=== PATIENT | female | born 1970 | race Caucasian/White ===

== ENCOUNTER 2022-11-20 15:51 | Emergency (ER) | payer OTHER, SELFPAY ==
--- NOTE | ~2022-11-20 | XR_ITS ---
EXAMINATION: XR foot LT min 3V DATE: 11/20/2022 16:18 INDICATION: Painful knot at the lateral aspect of the left foot. TECHNIQUE: Dorsoplantar, two oblique and lateral views of the left foot were obtained. COMPARISON: None. FINDINGS: Alignment is normal. No fracture. Mild osteoarthritis at the first metatarsophalangeal and a few tars ometatarsal and interphalangeal joints. Prominent at the head of the second metatarsal. There is foca l soft tissue swelling overlying the lateral tuberosity at the base of the fifth metatarsal. No under lying osseous abnormality. Small enthesophytes and tiny enthesopathic ossicles at the calcaneal inser tions of the distal Achilles tendon and proximal plantar aponeurosis. Soft tissues are otherwise unre markable. IMPRESSION: 1. Focal soft tissue swelling overlying the lateral tuberosity at the base of the fifth metatarsal wi thout underlying osseous abnormality. Reviewed, dictated and finalized at location A. IMPRESSION: 1. Focal soft tissue swelling overlying the lateral tuberosity at the base of t he fifth metatarsal without underlying osseous abnormality.
[2022-11-20 15:59] VITALS: BP 103/87; PULSE 85; RESP 16; TEMP 36.8; O2SAT 97
--- NOTE | 2022-11-20 16:01 | ED.EXTPRO ---
HPI - Extremity Problem General Chief complaint: Extremity Problem,Nontraumatic Stated complaint: KNOT ON L FOOT Time Seen by Provider: 11/20/22 16:06 Source: patient, RN notes reviewed and old records reviewed Mode of arrival: ambulatory Limitations: no limitations History of Present Illness HPI Narrative: 52 year old female who presents to [facility] care with complaints of knot area to the lateral aspect of her left foot for about a month with no known injury to area or any wound. Patient states pain radiating to heel area and also to plantar area of left foot since Friday Patient reports increased pain to her foot with extension and flexion of her toes. Patient reports no injury to her foot. 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 Patient does states that she has had Achilles tendon injury to her left foot in the past when she stepped in a pot hole and had physical therapy. MD Complaint: other (small knot lateral left foot and pain to left foot) Onset (ago): day(s) (2) Location: left and lower extremity (foot) Severity scale (1-10): 1 Exacerbating factors: weight bearing, palpation and other (movement of toes increases plantar pain) Related Data Home Medications Medication Instructions Recorded Confirmed ibuprofen 600 mg tablet 600 mg PO DAILY 11/20/22 11/20/22 Allergies Allergy/AdvReac Type Severity Reaction Status Date / Time No Known Allergies Allergy NONE Verified 11/20/22 16:17 Review of Systems Review of Systems: CONSTITUTIONAL: Denies fever, chills, or sweats. EYES: Denies visual changes, redness, or discharge. ENT: Denies rhinorrhea, congestion, sore throat, or otalgia. CARDIOVASCULAR: Denies chest pain, palpitations, or edema. RESPIRATORY: Denies cough or dyspnea. GASTROINTESTINAL: Denies abdominal pain, nausea, vomiting, or diarrhea. GENITOURINARY: Denies dysuria or hematuria. SKIN: Denies rash or itching.small area of raised soft tissue left lateral foot, no induration, warmth, no open wound MUSCULOSKELETAL: Denies back pain,positive for pain to left lateral foot radiates to heel with plantar foot pain also, joint pain, or myalgia. NEUROLOGIC: Denies headache, numbness, or weakness. PSYCHIATRIC: Denies anxiety or depression. All systems reviewed & are unremarkable except as noted in HPI and below PMFSH Past Medical History Medical History (Updated 11/20/22 @ 18:00 by Tavia Ames NP) Bronchitis DDD (degenerative disc disease) DJD (degenerative joint disease) Neuropathy Surgical History Surgical History (Updated 11/20/22 @ 16:36 by Tavia Ames NP) H/O: hysterectomy Previous section Family History Family History (Updated 11/20/22 @ 16:36 by Tavia Ames NP) Mother Breast cancer Social History Social History (Updated 11/20/22 @ 17:58 by Tavia Ames NP) Smoking packs per day: 1 Smoking cigarettes per day: 20.0 Years smoked: 15 Smoking pack-years: 15.00 Smoking status: Current every day smoker Alcohol intake: current Alcohol use details: rare Living arrangements: with family Gender identity (if verbalized by the patient): Female Comments At time of signature, agree with nursing past medical, surgical, social and family history. There is no relevant family history pertinent to the presenting complaint Exam Narrative: GENERAL: Well-appearing, well-nourished, and in no acute distress. HEAD: Normocephalic, atraumatic. EYES: PERRLA and EOMI. ENT: Nares clear, no rhinorrhea or epistaxis. Mucous membranes moist. NECK: Supple.no lymphadenopathy CHEST: Clear to auscultation. No respiratory distress.SAO2 97% on room air HEART: Regular rate and rhythm. No murmur heard. Normal peripheral pulses. ABDOMEN: Soft, nontender, nondistended, normal active bowel sounds. EXTREMITIES: Normal range of motion. No edema.painful left foot strong pedal pulse left foot, pain plantar foot area and also to heel area SKIN: Warm, dry, no r
--- NOTE | 2022-11-20 17:06 | PC.NURSE ---
+PMS POST ADAM APPLICATION
== END 2022-11-20 17:00 | disposition home or self-care (01) ==
PROVIDERS: Emergency Provider Registered Nurse; PCP Internal Medicine Gastroenterology
DX: M72.2 Plantar fascial fibromatosis (principal); M79.89 Other specified soft tissue disorders; F17.210 Nicotine dependence, cigarettes, uncomplicated
CPT/HCPCS: 73630; 99203; G0463